=== PATIENT | male | born 1985 | race Caucasian/White ===

== ENCOUNTER 2022-06-16 10:30 | Emergency (ER) | payer SELFPAY ==
[2022-06-16] VITALS (7 sets, daily range): BP systolic 140–154; BP diastolic 74–99; PULSE 68–83; RESP 16–18; TEMP 36.6; O2SAT 98–99; BMI 29.4
[2022-06-16 10:57] LABS: Add Manual Diff / Slide Review NO; Basophils Absolute Auto 0 /uL (0-100); Basophils Percent Auto 0.2 % (0-2); Eosinophils Absolute Auto 600 /uL (0-450); Eosinophils Percent Auto 4.5 % (2-4); Hematocrit 42.8 % (41-53); Hemoglobin 14.4 g/dL (13.5-17.5); Lymphocytes Absolute Auto 1600 /uL (1100-4500); Mean Corpuscular HGB Conc 33.7 % (30-36); Mean Corpuscular Hemoglobin 29.8 PG (26-34); Mean Corpuscular Volume 88.4 fL (80-100); Monocytes Absolute Auto 700 /uL (0-900); Monocytes Percent Auto 4.9 % (3-14); Neutrophils Absolute Auto 10500 /uL (1500-7000); Neutrophils Percent Auto 78.4 % (50-75); Platelet Count 243 X10^3/uL (150-400); Red Blood Cell Count 4.84 X10^6/uL (4.5-5.9); Red Cell Distribution Width 12.8 % (11.6-14.8); White Blood Cell Count 13.4 X10^3/uL (4.5-11.0)
[2022-06-16] MEDS: KETOROLAC 30 MG/ML VIAL IV (11:05)
[2022-06-16] MEDS: ONDANSETRON 4 MG/2 ML INJ IV (11:06)
[2022-06-16] MEDS: SODIUM CHLORIDE 0.9% 1,000 ML 1000 ML IV (11:06)
[2022-06-16 11:08] LABS: Alanine Aminotransferase 51 IU/L (<50); Albumin 4.9 g/dL (3.5-5.0); Albumin Globulin Ratio 1.5 (1.0-2.8); Alkaline Phosphatase 64 U/L (38-126); Aspartate Aminotransferase 40 IU/L (17-59); BUN Creatinine Ratio 18.3 (6-22); Bilirubin Total 0.4 mg/dL (0.2-1.3); Blood Urea Nitrogen 21 mg/dL (9-20); Calcium 9.2 mg/dL (8.4-10.2); Carbon Dioxide 22 mmol/L (22-32); Chloride 105 mmol/L (98-107); Estimated Glomerular Filt Rate > 60 mL/min (>60); Globulin 3.2 g/dL (1.7-4.1); Glucose 130 mg/dL (70-100); HEMOLYSIS 30 (0-50); Lipase 78 U/L (23-300); Potassium 4.6 mmol/L (3.4-5.1); Sodium 140 mmol/L (137-145); Total Protein 8.1 g/dL (6.3-8.2)
[2022-06-16 11:18] LABS: Appearance Urine UA CLEAR; Bilirubin Urine UA NEGATIVE (NEGATIVE); Color Urine UA YELLOW; Glucose Urine UA NEGATIVE (Negative); Ketones Urine UA NEGATIVE (NEGATIVE); Leukocyte Esterase Urine UA NEGATIVE (NEGATIVE); Nitrite Urine UA NEGATIVE (Negative); Occult Blood Urine UA NEGATIVE (Negative); Protein Urine UA 1+ (Negative); Urobilinogen Urine UA 0.2 E.U./dL (0.2); pH Urine UA 8.5 (4.5-8.0)
[2022-06-16 11:22] LABS: Bacteria Urine None Seen; Culture Indicated Urine Cult Not Indicated; RBC Urine None Seen (0-5/HPF); Urine Comments Microscopic Normal; WBC Urine None Seen (0-5/HPF)
--- NOTE | 2022-06-16 12:44 | ED.MALEGU ---
HPI - Male Genitourinary General Chief complaint: Urogenital-Male Stated complaint: Rt Abd Pain Time Seen by Provider: 06/16/22 12:43 Source: patient Mode of arrival: Ambulatory Limitations: no limitations History of Present Illness HPI Narrative: This is a 37 year old male with no known medical issues or prior surgeries. Patient states had a sudden onset of right flank pain wrapping around to the front about 830 this morning driving home in the car after dropping his kids off school. Patient states he felt sweaty, he had nausea, vomited once. He denies any diarrhea constipation. He states he did have some pain in his testicles but thought that they turned black and blue but then that went away. He states he had a sensation like he needed to urinate but that nothing really came out. He states it felt more like at the tip of the penis but no discharge. Denies any frequency or urgency at this time. Patient had a dose of Toradol in the department which has resolved his symptoms and he feels significantly better. Patient has not had similar symptoms in the past. He denies any prior surgeries. Does smoke tobacco, drinks alcohol, uses marijuana but denies any IV drug use. Related Data Home Medications Medication Instructions Recorded Confirmed No Known Home Medications 06/16/22 06/16/22 Allergies Allergy/AdvReac Type Severity Reaction Status Date / Time No Known Drug Allergies Allergy Verified 06/16/22 10:42 Review of Systems Review of Systems ROS Unobtainable: All systems reviewed & are unremarkable except as noted in HPI and below Patient History Social History Smoking Status: Current every day smoker Smoking Status: Current every day smoker tobacco type: cigarettes alcohol intake frequency: 0-2 drinks per day Substance Use Type: marijuana Exam Narrative Exam Narrative: GENERAL: Alert and oriented x three, male in mild distress HEENT: Head normocephalic, atraumatic, EOMI, pupils reactive, face symmetric, moist mucous membranes NECK: Supple, full range of motion CARDIOVASCULAR: Regular rate and rhythm without murmurs, rubs or gallops. RESPIRATORY: Breath sounds equal bilaterally, no wheezes rales or rhonchi. ABDOMEN: Soft, nontender. Normoactive bowel sounds all 4 quadrants. No guarding or rebound, rigidity, no mass : No CVA tenderness. Male: normal external examination, no penile discharge or lesions, testicles non-tender, no ecchymosis, pallor, erythema or other skin changes, cremasteric reflex intact, no inguinal hernias noted. EXTREMITIES: Normal range of motion, no clubbing or edema. Neurovascularly intact NEUROLOGICAL: Cranial nerves II through XII grossly intact. Moving all extremities SKIN: Warm, dry, no petechiae, patient has some slight erythema in the right inguinal groin in the hairline. Initial Vital Signs Initial Vital Signs: Vital Signs Temperature 97.8 F 06/16/22 10:38 Pulse Rate 68 06/16/22 10:38 Respiratory Rate 18 06/16/22 10:38 Blood Pressure 154/78 H 06/16/22 10:38 Pulse Oximetry 99 06/16/22 10:38 Oxygen Delivery Method 06/16/22 10:38 Course Orders Ordered: ED Orders 06/16/22 11:10 Urinalysis and Microscopic Stat 06/16/22 12:51 CT kidney ureter bladder (KUB) Stat Discontinued Medications Sodium Chloride (Normal Saline 0.9%) 1,000 mls @ 1,000 mls/hr IV BOLUS ONE Stop: 06/16/22 11:53 Last Infusion: 06/16/22 12:14 Dose: 0 mls/hr Documented By: Admin: 06/16/22 11:06 Dose: 1,000 mls/hr Documented By: JOHN Ketorolac Tromethamine (Ketorolac 30 Mg/Ml Vial) 30 mg IV NOW ONE Stop: 06/16/22 10:55 Last Admin: 06/16/22 11:05 Dose: 30 mg Documented By: JOHN Ondansetron HCl (Ondansetron 4 Mg/2 Ml Inj) 4 mg IV NOW ONE Stop: 06/16/22 10:51 Last Admin: 06/16/22 11:06 Dose: 4 mg Documented By: JOHN Vital Signs Vital signs: Vital Signs - 8 hr 06/16/22 12:51 06/16/22 12:52 06/16/22 12:52 Pulse Rate 83 81 Respiratory Rate Blood Pressure 140/96 H Pulse Oximetry 99 99 Oxygen Delivery Method 06/16/22 13:00 06/16/22 13:00 06/16/22 13:07 Pulse Rate 70 Respiratory Rate Blood Pressure 142/99 H 142/96 H Pulse Oximetry 98 Oxygen Delivery Method 06/16/22 13:07 06/16/22 13:30 06/16/22 13:30 Pulse Rate 75 76 Respiratory Rate Blood Pressure 148/74 H Pulse Oximetry 98 98 Oxygen Delivery Method 06/16/22 14:00 06/16/22 14:00 Pulse Rate 73 Respiratory Rate 16 Blood Pressure 152/87 H Pulse Oximetry 98 Oxygen Delivery Method Room Air MDM - Male Genitourinary Lab Data Result diagrams: 06/16/22 09:45 06/16/22 09:45 Labs: Lab Results 06/16/22 06/16/22 06/16/22 Range/Units 09:45 09:45 11:10 WBC 13.4 H (4.5-11.0) X10^3/uL RBC 4.84 (4.5-5.9) X10^6/uL Hgb 14.4 (13.5-17.5) g/dL Hct 42.8 (41-53) % MCV 88.4 (80-100) fL MCH 29.8 (26-34) PG MCHC 33.7 (30-36) % RDW 12.8 (11.6-14.8) % Plt Count 243 (150-400) X10^3/uL Neut % (Auto) 78.4 H (50-75) % Lymph % (Auto) 12.0 L (25-40) % [place] % (Auto) 4.9 (3-14) % Eos % (Auto) 4.5 H (2-4) % Baso % (Auto) 0.2 (0-2) % Neut # (Auto) 67616 H (4894-6578) /uL Lymph # (Auto) 1600 (2963-1133) /uL [place] # (Auto) 700 (0-900) /uL Eos # (Auto) 600 H (0-450) /uL Baso # (Auto) 0 (0-100) /uL Sodium 140 (137-145) mmol/L Potassium 4.6 (3.4-5.1) mmol/L Chloride 105 (98-107) mmol/L Carbon Dioxide 22 (22-32) mmol/L BUN 21 H (9-20) mg/dL Creatinine 1.15 (0.66-1.25) mg/dL Estimated GFR > 60 (>60) mL/min BUN/Creatinine Ratio 18.3 (6-22) Glucose 130 H (70-100) mg/dL Calcium 9.2 (8.4-10.2) mg/dL Total Bilirubin 0.4 (0.2-1.3) mg/dL AST 40 (17-59) IU/L ALT 51 H (<50) IU/L Alkaline Phosphatase 64 (38-126) U/L Total Protein 8.1 (6.3-8.2) g/dL Albumin 4.9 (3.5-5.0) g/dL Globulin 3.2 (1.7-4.1) g/dL Albumin/Globulin Ratio 1.5 (1.0-2.8) Lipase 78 (23-300) U/L Urine Color Yellow Urine Appearance Clear Urine pH 8.5 H (4.5-8.0) Ur Specific [place] 1.010 (1.000-1.035) Urine Protein 1+ H (Negative) Urine Glucose (UA) Negative (Negative) g/dL Urine Ketones Negative (NEGATIVE) Urine Occult Blood Negative (Negative) Urine Nitrate Negative (Negative) Urine Bilirubin Negative (NEGATIVE) Urine Urobilinogen 0.2 (0.2) E.U./dL Ur Leukocyte Esterase Negative (NEGATIVE) Urine RBC None seen (0-5/HPF) Urine WBC None seen (0-5/HPF) Urine Bacteria None seen (None) Ur Culture Indicated? Cult not indicated Micro UA Comment Microscopic normal Imaging Data CT scan - abdomen/pelvis: Radiologist's Impression: Morris Sauceda??37??M??1985 ? Allergy/Adv: No Known Drug Allergies Close Abdomen/Pelvis CT (Signed) Dio Kinsey - 06/16/22 [place] [address] CT Scan Report Signed Patient: Morris Sauceda MR#: [id number] : 1985 Acct:[id number] Age/Sex: 37 / M Date of Service: 06/16/22 Loc: ED Accession Number: [id number] ?? Procedure: CT kidney ureter bladder (KUB) Ordering Provider: Lynne Porter D.O. PROCEDURE:? CT KIDNEY URETER BLADDER (KUB) ? INDICATIONS:? right flank/abd pain ? TECHNIQUE:? Axial sections were acquired from the lung bases to the pubic symphysis.? Coronal and sagittal reformats were performed.? For radiation dose reduction, the following was used: ?automated exposure control, adjustment of mA and/or kV according to patient size.? ? COMPARISON:? None. ? FINDINGS:? Image quality:? Excellent.? ? Lung bases:? Unremarkable.? ? Heart:? No significant findings. ? URINARY:? There is mild perinephric fat stranding on the right.? No left perinephric fat stranding.? Kidneys are normal in size.? No hydronephrosis.? No nephrolithiasis.? There is mild diffuse right ureteral dilatation.? Left ureter is normal in appearance.? No ureteral calcifications. ? ? Bladder:? Normal wall thickness. No stones. ? ? ? ABDOMEN: Liver:? Unremarkable.? ? Gallbladder:? Unremarkable.? ? Biliary ducts:? Unremarkable.? ? Pancreas:? Unremarkable.? ? Spleen:? Unremarkable.? ? Adrenal Glands:? Unremarkable.? ? ? Stomach and Bowel:? Stomach, small bowel loops, and colon are unremarkable.? Normal appendix. Peritoneum:? No abnormal intraperitoneal fluid.? No free air.? ? Ventral Wall: ? No hernia.? Abdominal Nodes:? No enlarged retroperitoneal or mesenteric lymph nodes.? Vessels:? Aorta and inferior vena cava are normal in size.? ? PELVIS: Pelvic Organs:? Unremarkable.? ? Pelvic Nodes: Unremarkable. Miscellaneous: No inguinal hernias are seen. ? ? ? Bones:? Unremarkable. ? IMPRESSION:? ? 1.? Findings consistent with a recently passed right ureteral calculus versus right pyelonephritis.? Correlation with urinalysis and clinical factors recommended. 2. Normal appendix. ? ? Dictated by: Dio Kinsey M.D. on 06/16/2022 at 13:29 ? ? Approved by: Dio Kinsey M.D. on 06/16/2022 at 13:30?? [facility] Narrative Medical decision making narrative: 37-year-old male with history that sounds suspicious for kidney stone except for discoloration of his testicles which he states went away. He states no significant pain to the testicles themselves maybe mild and was bilateral when it occurred. He had urinary symptoms when his pain was at its peak but not prior to or after Toradol. Patient urine does not show any obvious infection or blood, CBC, CMP lipase show no acute changes. Plan for CT KUB to evaluate for stone versus other cause. CT shows possible recently passed kidney stone versus pyelonephritis. Patient's urine is negative he has sudden onset of symptoms which have since resolved and not returned after Toradol. Discharge Plan Departure Patient Disposition: Home Clinical Impression: Kidney stone on right side Instructions: DI for Kidney Stones Activity Restrictions/Additional Instructions: Please follow-up with primary care if you have recurrent symptoms. It appears you have recently passed a kidney stone on the right side. Your urine does not show any signs of infection today. You can take Tylenol and/or ibuprofen if you have any persistent pain. Please return for fevers, new or worsening abdominal, back flank pain, persistent vomiting, inability urinate or other new or concerning changes. Prescriptions: No Action No Known Home Medications Referrals: Marielle,DoctorMD [Primary Care Provider] - Visit Report Forms: Patient Portal/API
--- NOTE | 2022-06-16 12:51 | DI.CT.S_ITS ---
PROCEDURE: CT KIDNEY URETER BLADDER (KUB) INDICATIONS: right flank/abd pain TECHNIQUE: Axial sections were acquired from the lung bases to the pubic symphysis. Coronal and sagittal reformats were performed. For radiation dose reduction, the following was used: automated exposure control, adjustment of mA and/or kV according to patient size. COMPARISON: None. FINDINGS: Image quality: Excellent. Lung bases: Unremarkable. Heart: No significant findings. URINARY: There is mild perinephric fat stranding on the right. No left perinephric fat stranding. Kidneys are normal in size. No hydronephrosis. No nephrolithiasis. There is mild diffuse right ureteral dilatation. Left ureter is normal in appearance. No ureteral calcifications. Bladder: Normal wall thickness. No stones. ABDOMEN: Liver: Unremarkable. Gallbladder: Unremarkable. Biliary ducts: Unremarkable. Pancreas: Unremarkable. Spleen: Unremarkable. Adrenal Glands: Unremarkable. Stomach and Bowel: Stomach, small bowel loops, and colon are unremarkable. Normal appendix. Peritoneum: No abnormal intraperitoneal fluid. No free air. Ventral Wall: No hernia. Abdominal Nodes: No enlarged retroperitoneal or mesenteric lymph nodes. Vessels: Aorta and inferior vena cava are normal in size. PELVIS: Pelvic Organs: Unremarkable. Pelvic Nodes: Unremarkable. Miscellaneous: No inguinal hernias are seen. Bones: Unremarkable. IMPRESSION: 1. Findings consistent with a recently passed right ureteral calculus versus right pyelonephritis. Correlation with urinalysis and clinical factors recommended. 2. Normal appendix. Dictated by: Dio Kinsey M.D. on 06/16/2022 at 13:29 Approved by: Dio Kinsey M.D. on 06/16/2022 at 13:30
--- NOTE | 2022-06-16 12:52 | PC.NURSE ---
my nuts were black and blue
== END 2022-06-16 14:12 | disposition home or self-care (01) ==
PROVIDERS: Emergency Provider Emergency Medicine
DX: N20.0 Calculus of kidney (principal)
CPT/HCPCS: 36415; 74176; 80053; 81001; 83690; 85025; 96361; 96374; 96375; 99284; J1885; J2405